=== PATIENT | male | born 1990 | race Caucasian/White ===

== ENCOUNTER 2019-02-28 10:38 | Emergency (ER) | payer SELFPAY ==
[2019-02-28] MEDS ORDERED: LIDOCAINE 1% MPF 30 ML VIAL ONE (11:28)
[2019-02-28] MEDS ORDERED: LIDOCAINE 1% W/EPI 1:100,000 MDV 50 ML VIAL ONE (11:30)
[2019-02-28] MEDS ORDERED: CEFTRIAXONE 1000 MG/VIAL ONE (12:08)
[2019-02-28] MEDS ORDERED: CLINDAMYCIN HCL 150 MG CAP ONE (12:08)
[2019-02-28] MEDS ORDERED: LIDOCAINE 1% MPF 5 ML VIAL ONE (12:08)
--- NOTE | 2019-02-28 12:27 | ER ---
Nurse's Notes [facility] Name: Fan Santiago Age: 29 yrs Sex: Male : 1990 Arrival Date: 02/28/2019 Time: 10:40 Bed 14 Private MD: None, None Diagnosis: Cutaneous abscess of face Presentation: 02/28 10:51 Presenting complaint: Patient states: About a week ago I was shaving my chin when I cut sg myself because the razor was dull, now i have swelling and pain to my lip and neck, with redness and drainage from the spot where I cut myself. Transition of care: patient was not received from another setting of care. Onset of symptoms was February 28, 2019. Risk Assessment: Do you want to hurt yourself or someone else? Patient reports no desire to harm self or others. Initial Sepsis Screen: Does the patient meet any 2 criteria? No. Patient's initial sepsis screen is negative. Does the patient have a suspected source of infection? Yes: Skin breakdown/wound. Care prior to arrival: None. 10:51 Method Of Arrival: Ambulatory sg 10:51 Acuity: DIPTI 3 sg Historical: - Allergies: 10:54 No Known Allergies; sg - Home Meds: 10:54 None [Active]; sg - PMHx: 10:54 None; sg - PSHx: 10:54 None; sg - Immunization history:: Adult Immunizations up to date. - Social history:: Smoking status: Patient uses tobacco products. - Ebola Screening: : Patient negative for fever greater than or equal to 101.5 degrees Fahrenheit, and additional compatible Ebola Virus Disease symptoms Patient denies exposure to infectious person Patient denies travel to an Ebola-affected area in the 21 days before illness onset No symptoms or risks identified at this time. Screenin:00 Abuse screen: Denies threats or abuse. Denies injuries from another. Nutritional sg screening: No deficits noted. Tuberculosis screening: No symptoms or risk factors identified. Never had TB. Fall Risk None identified. Assessment: 11:00 General: Appears in no apparent distress. uncomfortable, unkempt, well developed, well sg nourished, Behavior is calm, cooperative, appropriate for age. Pain: Complains of pain in mouth and chin. Neuro: Level of Consciousness is awake, alert, obeys commands, Oriented to person, place, time, situation, Speech is normal, Facial symmetry appears normal. Cardiovascular: Patient's skin is warm and dry. Chest pain is denied. Respiratory: Airway is patent Respiratory effort is even, unlabored, Respiratory pattern is regular, symmetrical. GI: No signs and/or symptoms were reported involving the gastrointestinal system. : No signs and/or symptoms were reported regarding the genitourinary system. EENT: Oral mucosa is moist. Derm: Wound noted chin Wound is purulent drainage reported, noted to the right side of mouth, reports having swelling in the mouth and in right side of neck swelling to right side of cheek and right side of mouth. Musculoskeletal: No signs and/or symptoms reported regarding the musculoskeletal system. Vital Signs: 10:53 BP 144 / 81; Pulse 55; Resp 17; Temp 98.2; Pulse Ox 100% on R/A; Weight 63.5 kg; Height sg 5 ft. 9 in. (175.26 cm); Pain 10/10; 12:13 BP 132 / 77; Pulse 60; Resp 16; Pulse Ox 99% on R/A; sg 10:53 Body Mass Index 20.67 (63.50 kg, 175.26 cm) sg ED Course: 10:40 Patient arrived in ED. mr 10:40 None, None is Private Physician. mr 10:48 Kel Carey MD is Attending Physician. gs 10:51 Eric Pérez, RN is Primary Nurse. sg 10:53 Triage completed. sg 10:54 Arm band placed on. sg 11:15 Assist provider with I \T\ D: of an abscess on right mouth Set up I\T\D tray. Performed by jairo Carey MD. Administered Medications: 11:20 Drug: Lidocaine-Epinephrine -1%: (1:100,000) 10 mg {Note: Medication administered by jairo Ryder for I/D.} Volume: 20 ml; Route: Infiltration; 12:00 Drug: Rocephin (cefTRIAXone) 1 grams Route: IM; Site: right deltoid; sg 12:29 Follow up: Response: No adverse reaction sg 12:00 Drug: Clindamycin 600 mg Route: PO; sg 12:29 Follow up: Response: No adverse reaction sg Outcome: 12:27 Discharge ordered by . 12:59 Patient left the ED. sg Signatures: Eric Pérez RN RN jairo Jimenez, Chiquis mr Kel Carey MD MD gs Corrections: (The following items were deleted from the chart) 11:20 11:20 Lidocaine-Epinephrine -1%: (1:100,000) 10 mg 20 ml Infiltration 20 ml sg sg
--- NOTE | 2019-02-28 12:28 | EDPHYS ---
Physician Documentation [facility] Name: Fan Santiago Age: 29 yrs Sex: Male : 1990 Arrival Date: 02/28/2019 Time: 10:40 Bed 14 Private MD: None, None ED Physician Kel Carey HPI: 02/28 12:21 This 29 yrs old Male presents to ER via Ambulatory with complaints of Mouth gs Swelling. 18:45 The patient presents with an abscess of the right corner of mouth. Description: The gs affected area is small, approximately 3 cm(s), confluent, draining, fluctuant. Onset: The symptoms/episode began/occurred 1 week(s) ago. Possible cause(s): unknown. Associated signs and symptoms: Pertinent negatives: discharge, fever, dysphagia. Modifying factors: the symptoms are alleviated by nothing, the symptoms are aggravated by squeezing the lesion and expressing the contents, touching. Severity of symptoms: At their worst the symptoms were moderate, in the emergency department the symptoms are unchanged. The patient has not experienced similar symptoms in the past. Historical: - Allergies: 10:54 No Known Allergies; sg - Home Meds: 10:54 None [Active]; sg - PMHx: 10:54 None; sg - PSHx: 10:54 None; sg - Immunization history:: Adult Immunizations up to date. - Social history:: Smoking status: Patient uses tobacco products. - Ebola Screening: : Patient negative for fever greater than or equal to 101.5 degrees Fahrenheit, and additional compatible Ebola Virus Disease symptoms Patient denies exposure to infectious person Patient denies travel to an Ebola-affected area in the 21 days before illness onset No symptoms or risks identified at this time. ROS: 18:45 All other systems are negative. gs Exam: 03/01 10:27 Head/Face: Normocephalic, atraumatic. Eyes: Pupils equal round and reactive to light, gs extra-ocular motions intact. Lids and lashes normal. Conjunctiva and sclera are non-icteric and not injected. Cornea within normal limits. Periorbital areas with no swelling, redness, or edema. Chest/axilla: Normal chest wall appearance and motion. Nontender with no deformity. No lesions are appreciated. Cardiovascular: Regular rate and rhythm with a normal S1 and S2. No gallops, murmurs, or rubs. Normal PMI, no JVD. No pulse deficits. Respiratory: Lungs have equal breath sounds bilaterally, clear to auscultation and percussion. No rales, rhonchi or wheezes noted. No increased work of breathing, no retractions or nasal flaring. Abdomen/GI: Soft, non-tender, with normal bowel sounds. No distension or tympany. No guarding or rebound. No evidence of tenderness throughout. Back: No spinal tenderness. No costovertebral tenderness. Full range of motion. MS/ Extremity: Pulses equal, no cyanosis. Neurovascular intact. Full, normal range of motion. Neuro: Awake and alert, GCS 15, oriented to person, place, time, and situation. Cranial nerves II-XII grossly intact. Motor strength 5/5 in all extremities. Sensory grossly intact. Cerebellar exam normal. Normal gait. Constitutional: The patient appears alert, awake, uncomfortable. Head/face: Noted is swelling, that is mild, of the right jaw. ENT: Mouth: abscess, that is moderate, approximately 3cm(s), of the right corner of mouth. Skin: abscess, that is small, with drainage, with fluctuance, with induration. Vital Signs: 02/28 10:53 BP 144 / 81; Pulse 55; Resp 17; Temp 98.2; Pulse Ox 100% on R/A; Weight 63.5 kg; Height sg 5 ft. 9 in. (175.26 cm); Pain 10/10; 12:13 BP 132 / 77; Pulse 60; Resp 16; Pulse Ox 99% on R/A; sg 10:53 Body Mass Index 20.67 (63.50 kg, 175.26 cm) Procedures: 03/01 10:27 I \T\ D: Incision and drainage was performed for an abscess of the right mouth Prepped gs with Betadine, Anesthetized with 2 ml's 1% Lidocaine w/ Epi. Incised with #11 blade. Drained small amount purulent fluid. Dressing: sterile 4x4 gauze, the patient tolerated the procedure well. MDM: 02/28 11:05 Patient medically screened. 03/01 10:27 Differential diagnosis: abscess, cellulitis. Data reviewed: vital signs, nurses notes. gs Counseling: I had a detailed discussion with the patient and/or guardian regarding: the historical points, exam findings, and any diagnostic results supporting the discharge/admit diagnosis, the need for outpatient follow up, to return to the emergency department if symptoms worsen or persist or if there are any questions or concerns that arise at home. Response to treatment: the patient's symptoms have markedly improved after treatment, and as a result, I will discharge patient. Administered Medications: 02/28 11:20 Drug: Lidocaine-Epinephrine -1%: (1:100,000) 10 mg {Note: Medication administered by jairo Ryder for I/D.} Volume: 20 ml; Route: Infiltration; 12:00 Drug: Rocephin (cefTRIAXone) 1 grams Route: IM; Site: right deltoid; 12:29 Follow up: Response: No adverse reaction 12:00 Drug: Clindamycin 600 mg Route: PO; 12:29 Follow up: Response: No adverse reaction sg Disposition: 02/28/19 12:27 Discharged to Home. Impression: Cutaneous abscess of face. - Condition is Stable. - Discharge Instructions: Skin Abscess, Incision and Drainage, Managing Your Hypertension. - Prescriptions for Clindamycin HCl 150 mg Oral Capsule - take 2 capsule by ORAL route every 8 hours for 10 days; 60 capsule. Keflex 500 mg Oral Capsule - take 1 capsule by ORAL route every 8 hours for 10 days; 30 capsule. - Work release form, Medication Reconciliation Form, Thank You Letter, Antibiotic Education, Prescription Opioid Use form. - Follow up: Private Physician; When: 1 - 2 days; Reason: Re-evaluation by your physician. Signatures: Eric Pérez RN RN sg Starr, Gregory, MD MD Corrections: (The following items were deleted from the chart) 12:59 12:27 02/28/2019 12:27 Discharged to Home. Impression: Cutaneous abscess of face. sg Condition is Stable. Forms are Medication Reconciliation Form, Thank You Letter, Antibiotic Education, Prescription Opioid Use. Follow up: Private Physician; When: 1 - 2 days; Reason: Re-evaluation by your physician. gs
== END 2019-02-28 12:59 | disposition home or self-care (01) ==
LOC: ER 10:38
PROC: 0C91XZZ Drainage of Lower Lip, External Approach (ICD-10-PCS; principal; 2019-02-28)
DX: L02.01 Cutaneous abscess of face (principal); Z72.0 Tobacco use
CPT/HCPCS: 96372; 99283